=== PATIENT | male | born 1955 | race African-American/Black ===

== ENCOUNTER 2017-02-01 14:27 | Emergency (ER) | payer OTHER ==
[~2017-02-01] VITALS: Ht 177.8 cm; Wt 74.8 kg
[2017-02-01] MEDS ORDERED: LORazepam Inj 2mg/ml 1ml IV ONE (14:30)
[2017-02-01] MEDS ORDERED: levETIRAcetam 500 MG in D5W 110 ML IV ONE (14:30)
[2017-02-01] MEDS ORDERED: levETIRAcetam 500mg vial IV ONE (14:38)
[2017-02-01 14:40] VITALS: BP 127/82
[2017-02-01 14:58] LABS: BASOPHILS % (AUTO) 1.5 % (0.0-2.0); EOSINOPHILS % (AUTO) 1.4 % (0.0-3.0); LYMPHOCYTES % (AUTO) 47.6 % (20.0-45.0); MEAN CORPUSCULAR HEMOGLOBIN 31.7 PG (27.0-31.0); MEAN CORPUSCULAR HGB CONC 32.5 G/DL (32.0-36.0); MEAN CORPUSCULAR VOLUME 98 FL (80-99); MEAN PLATELET VOLUME 5.3 FL (6.5-10.1); MONOCYTES % (AUTO) 10.5 % (1.0-10.0); PLATELET COUNT 370 K/UL (150-450); RED BLOOD COUNT 4.75 M/UL (4.70-6.10); RED CELL DISTRIBUTION WIDTH 11.4 % (11.6-14.8); WHITE BLOOD COUNT 10.1 K/UL (4.8-10.8)
--- NOTE | 2017-02-01 15:01 | Emergency Room Report ---
History of Present Illness General Chief Complaint: Seizure Source: Patient, Medical Record, EMS Present Illness HPI This patient [facility]. He has a history of a seizure disorder and hepatitis C. There is some confusion on whether this patient has been receiving his seizure medications to include Keppra and Dilantin. There is also some confusion whether these were changed recently. The patient had a tonic-clonic seizure prior to arrival. He also had another seizure on arrival here. Patient himself has no specific complaints. He denies pain. Allergies: Coded Allergies: No Known Allergies (Unverified , 02/01/17) Patient History Past Medical History: see triage record, seizures, other - HCV Social History: Denies: smoking, alcohol use, drug use Reviewed Nursing Documentation: PMH: Agreed, PSxH: Agreed Nursing Documentation-PMH Hx Seizures: Yes Review of Systems All Other Systems: negative except mentioned in HPI Physical Exam Vital Signs Date Time Temp Pulse Resp B/P (MAP) Pulse Ox O2 Delivery O2 Flow Rate FiO2 02/01/17 14:25 98.1 116 18 94/60 95 Non-Rebreather Sp02 EP Interpretation: reviewed, abnormal General Appearance: no apparent distress, GCS 15, non-toxic, other - sleepy but arousable to answer simple questions appropriately. Head: normocephalic, other - abrasion and contusion to L. forehead. Eyes: bilateral eye normal inspection, bilateral eye PERRL ENT: hearing grossly normal, normal pharynx, no angioedema, normal voice Neck: normal inspection, other - In C-collar. Pt post-ictal. Unable to clinically clear. Respiratory: chest non-tender, lungs clear, normal breath sounds, no respiratory distress, no retraction, no accessory muscle use, speaking full sentences Cardiovascular #1: no edema, tachycardia Gastrointestinal: normal bowel sounds, non tender, soft, non-distended, no guarding, no rebound Rectal: deferred Musculoskeletal: back normal, normal range of motion, non-tender Neurologic: responsive, motor strength/tone normal, sensory intact, speech normal, other - non-focal Psychiatric: judgement/insight normal, memory normal, mood/affect normal, no suicidal/homicidal ideation Skin: normal color, no rash, warm/dry, well hydrated Medical Decision Making Diagnostic Impression: Primary Impression: Seizure disorder ER Course I suspect the seizures that the patient is presenting with is non-emergent in etiology. The patient has a history of seizures in the past and has returned to baseline with normal neurologic status. The patient is not immunocompromised with no history of known structural brain disease. The patient does not have persistent altered mental status, fever or new focal neurologic deficit. Laboratory workup was noncontributory. I doubt meningitis so a lumbar puncture was not performed. The patient reports that he has been off of his seizure medications for the past 3 weeks. I will go ahead and restart this patient on Keppra. The patient has an appointment with his primary care physician and neurologist next week. CT of the head and C-spine showed no acute findings. The patient was counseled that, though unlikely, the possibility of an emergent cause of seizure may still be present and that the patient should return immediately if symptoms persist or worsen. I believe the patient is stable for discharge to followup with the primary care provider for further workup. Laboratory Tests Test 02/01/17 14:30 White Blood Count 10.1 K/UL (4.8-10.8) Red Blood Count 4.75 M/UL (4.70-6.10) Hemoglobin 15.1 G/DL (14.2-18.0) Hematocrit 46.4 % (42.0-52.0) Mean Corpuscular Volume 98 FL (80-99) Mean Corpuscular Hemoglobin 31.7 PG (27.0-31.0) H Mean Corpuscular Hemoglobin Concent 32.5 G/DL (32.0-36.0) Red Cell Distribution Width 11.4 % (11.6-14.8) L Platelet Count 370 K/UL (150-450) Mean Platelet Volume 5.3 FL (6.5-10.1) L Neutrophils (%) (Auto) 39.0 % (45.0-75.0) L Lymphocytes (%) (Auto) 47.6 % (20.0-45.0) H Monocytes (%) (Auto) 10.5 % (1.0-10.0) H Eosinophils (%) (Auto) 1.4 % (0.0-3.0) Basophils (%) (Auto) 1.5 % (0.0-2.0) Sodium Level 139 MMOL/L (136-145) Potassium Level 3.5 MMOL/L (3.5-5.1) Chloride Level 100 MMOL/L (98-107) Carbon Dioxide Level 15 MMOL/L (21-32) L Anion Gap 25 mmol/L (5-15) H Blood Urea Nitrogen 6 mg/dL (7-18) L Creatinine 1.0 MG/DL (0.55-1.30) Estimate Glomerular Filtration Rate > 60 mL/min (>60) Glucose Level 112 MG/DL (74-106) H Calcium Level 9.5 MG/DL (8.5-10.1) Total Bilirubin 0.3 MG/DL (0.2-1.0) Aspartate Amino Transferase (AST) 41 U/L (15-37) H Alanine Aminotransferase (ALT) 37 U/L (12-78) Alkaline Phosphatase 148 U/L (46-116) H Troponin I 0.000 ng/mL (0.000-0.056) Total Protein 8.8 G/DL (6.4-8.2) H Albumin 3.9 G/DL (3.4-5.0) Globulin 4.9 g/dL Albumin/Globulin Ratio 0.8 (1.0-2.7) L Phenytoin (Dilantin) Level 0.7 ug/mL (10-20) L Serum Alcohol 14 mg/dL EKG Diagnostic Results Rate: normal Rhythm: NSR ST Segments: no acute changes Other Impression Early repolorization Rhythm Strip Diag. Results EP Interpretation: yes Rate: 100's Rhythm: no PVC's, no ectopy Other Impression S.tachycardia CT/MRI/US Diagnostic Results CT/MRI/US Diagnostic Results : Imaging Test Ordered: CT head, CT C-spine Impression CT head: No intracranial bleed, mass effect or edema. See official report. CT cervical spine: No acute bony trauma. Chronic spondylosis and disc findings. See official report. Last Vital Signs Date Time Temp Pulse Resp B/P (MAP) Pulse Ox O2 Delivery O2 Flow Rate FiO2 02/01/17 14:25 98.1 116 18 94/60 95 Non-Rebreather Status: improved Disposition: HOME, SELF-CARE Condition: Improved Patient Instructions: Seizure, Adult BRYANT DHALIWAL D.O. Feb 01, 2017 15:01
[2017-02-01 15:07] LABS: ALANINE AMINOTRANSFERASE 37 U/L (12-78); ALBUMIN/GLOBULIN RATIO 0.8 (1.0-2.7); ALCOHOL 14 mg/dL; ANION GAP 25 mmol/L (5-15); ASPARTATE AMINO TRANSFERASE 41 U/L (15-37); CALCIUM 9.5 MG/DL (8.5-10.1); CARBON DIOXIDE 15 MMOL/L (21-32); CHLORIDE 100 MMOL/L (98-107); GLOMERULAR FILTRATION RATE > 60 mL/min (>60); POTASSIUM 3.5 MMOL/L (3.5-5.1); SODIUM 139 MMOL/L (136-145); TOTAL PROTEIN 8.8 G/DL (6.4-8.2)
--- NOTE | 2017-02-01 15:36 | Diagnostic Imaging Report ---
Indications: Seizure Technique: Spiral acquisitions obtained through the brain. Angled axial and coronal 5 x 5 mm slices were reconstructed. Total dose length product 1421 mGycm. CTDI vol(s) 70 mGy. Dose reduction achieved using automated exposure control Comparison: None Findings: There is encephalomalacia of the right inferior frontal lobe. There is also encephalomalacia of the anterior right temporal lobe. The latter results in ex vacuo dilatation of the temporal horn of the right lateral ventricle. There is extensive age-related enlargement of the ventricles and extra-axial CSF spaces. There is extensive periventricular deep white matter chronic ischemic change. No acute intracranial hemorrhage or edema. No mass effect or midline shift. There is right frontal region scalp soft tissue swelling. The calvarium is intact. There is evidence of left axillary sinus disease. The orbits are unremarkable. 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 Negative for acute intracranial bleed or mass effect Evidence of right frontal extracranial scalp soft tissue injury. The CT scanner at [facility] is accredited by the [employer] and the scans are performed using protocols designed to limit radiation exposure to as low as reasonably achievable to attain images of sufficient resolution adequate for diagnostic evaluation.
[2017-02-01] MEDS ORDERED: Phenytoin 500 MG in NS 110 ML IVPB ONE (15:45)
--- NOTE | 2017-02-01 15:49 | Diagnostic Imaging Report ---
Indication: Shortness of breath Technique: One view of the chest Comparison: none Findings: Bilateral basilar nodular opacities likely represent nipple shadows. The lungs and pleural spaces are clear. Heart size is normal. Impression: No acute process
[2017-02-01] MEDS ORDERED: Phenytoin 250mg/5ml vial ONE ×2 (15:58→16:02)
[2017-02-01 17:17] VITALS: BP 126/84
--- NOTE | 2017-02-01 17:36 | Diagnostic Imaging Report ---
Indication: TRAUMA, pain Technique: Spiral acquisitions obtained through the cervical spine. No IV contrast utilized. Multiplanar reconstructions were generated. Total dose length product 320 mGycm. CTDIvol(s) 14 mGy. Dose reduction achieved using automated exposure control Comparison: None Findings: There is reversal of the normal cervical lordosis. Otherwise normal bony alignment. No acute fractures. No dislocations. No prevertebral soft tissue swelling. There is degenerative narrowing of the anterior lateral occipital joint. At C2-3, there is mild circumferential annular bulge. This, and short pedicles, results in borderline narrowing of the spinal canal. The neural foramina are preserved. The disc space is preserved. At C3-4, there is moderate degenerative disc narrowing. Circumferential annular bulge, posterior osteophytes, and short pedicles result in moderate narrowing of the spinal canal. There is moderate to severe bilateral neural foraminal stenosis at this level. At C4-5, there is minimal degenerative disc narrowing. There is posterior disc protrusion centrally, which results in moderate to severe compromise of the spinal canal. The disc protrudes approximately 6 mm posterior to the posterior margin of the vertebral body at this level. There is mild right neural foraminal stenosis. At C5-6 no significant disc narrowing. There is central posterior disc protrusion, which results in moderate to severe narrowing of the spinal canal at this level, impinging upon the anterior aspect of the cord. The neural foramina are preserved. Note that the C4-5 and C5-6 disc protrusions appear to be somewhat contiguous, with thickening of the posterior longitudinal ligament connecting the 2. At C6-7, there is mild degenerative disc narrowing. No significant disc bulge or protrusion or spinal stenosis. There is moderate to severe bilateral neural foraminal stenosis At C7-T1, no significant disc bulge or protrusion. There is mild degenerative disc narrowing. There is moderate to severe bilateral neural foraminal stenosis. The included extraspinal soft tissues are unremarkable. Impression: No acute bony trauma Extensive multilevel degenerative change, as as detailed above. Note unusual central disc bulges at C4-5 and C5-6 which appear to be connected by marked posterior longitudinal ligament thickening. These results in moderate to severe spinal stenosis at these levels. Note also multilevel extensive neural foraminal stenosis The CT scanner at [facility] is accredited by the [employer] and the scans are performed using protocols designed to limit radiation exposure to as low as reasonably achievable to attain images of sufficient resolution adequate for diagnostic evaluation.
[2017-02-01 18:30] VITALS: BP 138/79
[2017-02-01] MEDS ORDERED: Bacitracin Oint UD TOPIC ONE (19:15)
[2017-02-01 19:20] VITALS: BP 129/75
[2017-02-01] MEDS ORDERED: KEPPRA500 M4 ORAL (19:21)
[2017-02-01] MEDS ORDERED: Acetaminophen 500mg (ES) tab ORAL ONE (19:30)
[2017-02-01 21:10] VITALS: BP 132/77
[2017-02-01 21:15] VITALS: BP 132/77
--- NOTE | 2017-02-03 16:00 | Cardiology Report ---
APPROVED REPORT EKG Measurement Heart [id number] Normal sinus rhythm Early repolarization Normal ECG
== END 2017-02-01 21:15 | disposition home or self-care (01) ==
LOC: EDBD 14:27 → EMR 14:58
DX: G40.909 Epilepsy, unspecified, not intractable, without status epilepticus (principal); Z86.19 Personal history of other infectious and parasitic diseases; S00.81XA Abrasion of other part of head, initial encounter; X58.XXXA Exposure to other specified factors, initial encounter; Y93.9 Activity, unspecified; Y92.9 Unspecified place or not applicable; M47.892 Other spondylosis, cervical region; G93.89 Other specified disorders of brain; J32.9 Chronic sinusitis, unspecified
CPT/HCPCS: 36415; 70450; 71010; 72125; 80053; 80185; 80329; 82962; 84484; 85025; 93005; 96361; 96374; 96375; 99284; J1165; J1953

== ENCOUNTER 2017-07-13 05:52 | Emergency (ER) | payer OTHER ==
[~2017-07-13] VITALS: Ht 175.3 cm; Wt 63.5 kg
[~2017-07-13 05:52] MED LIST: KEPPRA500 M4 ORAL
[2017-07-13] MEDS ORDERED: KEPPRA750 MG ORAL (05:59)
[2017-07-13] MEDS ORDERED: FOLIC ACID1 MG ORAL (05:59)
[2017-07-13] MEDS ORDERED: ATORVASTATIN CA20 MG ORAL (05:59)
[2017-07-13] MEDS ORDERED: QUETIAPINE FUMA50 MG ORAL (05:59)
[2017-07-13 06:00] VITALS: BP 157/94
--- NOTE | 2017-07-13 06:04 | Emergency Room Report ---
History of Present Illness General Chief Complaint: Seizure Source: Patient, Medical Record, EMS Present Illness HPI Is a 62-year-old male with a psych history and history of seizure. He takes Keppra. He stays in a boarding care. He presents with a chief complaint of a seizure. Tonic-clonic activity witnessed by his roommate. Lasting for a few minutes. Postictal period. No tongue laceration. No incontinence of bowel or urine. Back to baseline now. Allergies: Coded Allergies: No Known Allergies (Unverified , 02/01/17) Patient History Past Medical History: see triage record, old chart reviewed, seizures Past Surgical History: other Pertinent Family History: none Social History: Denies: smoking Immunizations: other Reviewed Nursing Documentation: PMH: Agreed; PSxH: Agreed Nursing Documentation-PMH Hx Seizures: Yes Review of Systems Eye: Denies: eye pain, blurred vision ENT: Denies: ear pain, nose congestion, throat swelling Respiratory: Denies: cough, shortness of breath Cardiovascular: Denies: chest pain, palpitations Gastrointestinal: Denies: abdominal pain, diarrhea, nausea, vomiting Musculoskeletal: Denies: back pain, joint pain Skin: Denies: rash Neurological: Denies: headache, numbness Endocrine: Denies: increased thirst, increased urine Hematologic/Lymphatic: Denies: easy bruising All Other Systems: negative except mentioned in HPI Physical Exam Vital Signs Date Time Temp Pulse Resp B/P (MAP) Pulse Ox O2 Delivery O2 Flow Rate FiO2 07/13/17 05:50 99.2 89 16 148/82 98 Room Air 99.1 vitals normal Sp02 EP Interpretation: reviewed, normal General Appearance: well appearing, no apparent distress, alert Head: normocephalic, atraumatic Eyes: bilateral eye PERRL, bilateral eye EOMI ENT: hearing grossly normal, normal pharynx Neck: full range of motion, supple, no meningismus Respiratory: chest non-tender, lungs clear, normal breath sounds Cardiovascular #1: regular rate, rhythm, no murmur Gastrointestinal: normal bowel sounds, non tender, no mass, no organomegaly, no bruit, non-distended Musculoskeletal: back normal, gait/station normal, normal range of motion Psychiatric: mood/affect normal Skin: warm/dry Medical Decision Making Diagnostic Impression: Primary Impression: Seizure disorder ER Course Patient with a breakthrough seizure. I load him with Keppra here. No trauma. We'll discharge home. Last Vital Signs Date Time Temp Pulse Resp B/P (MAP) Pulse Ox O2 Delivery O2 Flow Rate FiO2 07/13/17 05:50 99.2 89 16 148/82 98 Room Air 99.1 Status: improved Disposition: HOME, SELF-CARE Condition: Stable Patient Instructions: Seizure, Adult Additional Instructions: Follow-up with your doctor in 7 days. Take your medicine. Return if worse. TIM EMERY M.D. Jul 13, 2017 06:03
[2017-07-13] MEDS ORDERED: levETIRAcetam 1,000mg/NS100ml 100 ML IVPB ONE (06:15)
[2017-07-13] MEDS ORDERED: Acetaminophen 500mg (ES) tab ORAL ONE (06:48)
[2017-07-13 07:41] VITALS: BP 160/92
== END 2017-07-13 07:43 | disposition home or self-care (01) ==
LOC: EDBD 05:52 → EMR 06:04
DX: G40.909 Epilepsy, unspecified, not intractable, without status epilepticus (principal); Z79.899 Other long term (current) drug therapy
CPT/HCPCS: 82962; 96361; 96374; 99284; J1953; J2405